=== PATIENT | female | born 1960 | race Caucasian/White ===

== ENCOUNTER 2024-08-03 23:04 | Emergency (ER) | payer MEDICAID ==
[~2024-08-03] VITALS: Ht 160 cm; Wt 82.0 kg
[2024-08-03 23:33] VITALS: O2SAT 95
[2024-08-03 23:43] VITALS: BP 147/74; PULSE 66; RESP 18; TEMP 98.4; O2SAT 100
[2024-08-04] MEDS ORDERED: ACET-2708 MT (00:09)
[2024-08-04] MEDS ORDERED: SULF1TAB48 MT (00:09)
[2024-08-04] MEDS: SULFAMETHOXAZOLE/TRIMETHOPRIM 800/160MG TABLET PO ONE (00:38)
== END 2024-08-04 00:55 | disposition home or self-care (01) ==
LOC: ER 23:35
DX: L03.116 Cellulitis of left lower limb (principal); I10 Essential (primary) hypertension; E11.9 Type 2 diabetes mellitus without complications; E78.00 Pure hypercholesterolemia, unspecified; Z88.0 Allergy status to penicillin
CPT/HCPCS: 99283